=== PATIENT | male | born 1965 | race Caucasian/White ===

== ENCOUNTER → 2022-06-13 | Outpatient (CLI) | payer MEDICARE, MEDICAID ==
[~2022-06-13] MED LIST: AMMO12CR7 EX; ASPI81CH49 PO; ASPI81TA83 OR; BACT2CRE TOP; BENG1CRE TOP; BENZ-52 PO; BENZ1TAB OR; CLIN300C OR; COGE1INJ PO; COGENTIN PO; FISHCAP PO; FLON1SPR; GEOD60CA PO; GLIMEPIRIDE PO; GLIP5TAB2 OR; GLUC1000 OR; HALDOL DECANOATE IM; HALDOL DECONATE IM; HALDOL PO; HALO10TA4 OR; INSUDET SC; INVO300T PO; JANU100T PO; JANUVIA PO; LANTINJ4 SC; LASI40TA OR; LASI40TA9 PO; LATU1TAB PO; LIPI1TAB2 OR; LIPITOR PO; LISI5TAB11 PO; METF10004 PO; METFORMIN PO; METOPROLOL PO; NEXI1CAP3 OR; POTA-77 PO; POTA20TA OR; PRIN20TA3 OR; PROT1TAB2 OR; RISP2TAB12 OR; TOPI100T9 PO; TOPI50TA OR; TRAZ50TA OR; VITA100T OR; VITAMIN B 12 PO; VITAMIN B-12 PO; VITAMIN D50000 UNT OR; ZOCO80TA OR; [UNRECOGNIZED DRUG - CODE] PO
== END ==
LOC: M EKG 10:03
PROVIDERS: ATTEND Registered Nurse
DX: F20.9 Schizophrenia, unspecified (principal); Z51.81 Encounter for therapeutic drug level monitoring; Z13.9 Encounter for screening, unspecified; Z79.899 Other long term (current) drug therapy

== ENCOUNTER 2022-08-09 16:16 | Inpatient (IN) | payer MEDICARE, MEDICAID ==
[~2022-08-09] VITALS: Ht 167.6 cm; Wt 115.7 kg
[2022-08-09] MEDS ORDERED: VANCOMYCIN HCL 2,000 MG in D5W 500 ML IV ONE (16:40)
[2022-08-09] MEDS ORDERED: VANCOMYCIN HCL 1,000 MG, VIAL MATE ADAPTER 1 EACH in NS 250 ML IV ONE ×2 (17:00→18:00)
[2022-08-09] MEDS ORDERED: LIDOCAINE 2% 5ML JELLY UROJET TOP ONE (17:55)
[2022-08-09 17:56] LABS: INR 1.06
[2022-08-09 17:57] LABS: PARTIAL THROMBOPLASTIN TIME 28.7 SECONDS (24.8-34.2)
[2022-08-09 18:01] LABS: BASO % 0.3 % (0.0-1.0); EOS % 0.1 % (0.0-3.0); HEMATOCRIT 45.4 % (42.0-52.0); HEMOGLOBIN 15.2 g/dl (13.5-17.5); LIPASE 19 U/L (12-53); LYMPH # 1.1 10^3/uL (1.5-5.0); LYMPH % 7.6 % (24.0-44.0); MEAN CORPUSCULAR HGB CONC 33.5 g/dl (32.0-36.5); MEAN CORPUSCULAR VOLUME 89.5 fl (80.0-96.0); MONO # 1.1 10^3/uL (0.0-0.8); NEUTROPHILS # 11.7 10^3/uL (1.5-8.5); NEUTROPHILS % 83.4 % (36.0-66.0); PLATELET COUNT, AUTOMATED 316 10^3/uL (150-450); RED BLOOD COUNT 5.07 10^6/uL (4.30-6.10)
[2022-08-09 18:03] LABS: ALBUMIN 2.8 G/DL (3.2-5.2); ALKALINE PHOSPHATASE 145 U/L (46-116); ALT/SGPT 15 U/L (7.0-40); AST/SGOT 17 U/L (<34); BILIRUBIN,DIRECT 0.1 MG/DL (<0.4); BILIRUBIN,TOTAL 0.4 MG/DL (0.3-1.2)
[2022-08-09 18:20] LABS: BLOOD UREA NITROGEN 18 MG/DL (9-23); CALCIUM LEVEL 8.8 MG/DL (8.5-10.1); CARBON DIOXIDE LEVEL 17 MMOL/L (20-31); CHLORIDE LEVEL 105 MMOL/L (98-107); CREATININE FOR GFR 0.66 MG/DL (0.70-1.30); GLOMERULAR FILTRATION RATE > 60.0 (>56); GLUCOSE, FASTING 111 MG/DL (60-100); POTASSIUM SERUM 3.9 MMOL/L (3.5-5.1); SODIUM LEVEL 139 MMOL/L (136-145)
[2022-08-09 18:39] LABS: RSV AMPLIFICATION NEGATIVE (NEGATIVE)
[2022-08-09] MEDS ORDERED: cefTRIAXone 500MG VIAL IM ONE (20:10)
[2022-08-09] MEDS ORDERED: LIDOCAINE 1% SDV 5ML VIAL DILUENT ONE (20:10)
[2022-08-09] MEDS: INSULIN LISPRO (NovoLOG) PER UNIT SC SCH (21:00)
[2022-08-09] MEDS ORDERED: DOXYCYCLINE HYCLATE 100MG TABLET PO SCH (21:00)
[2022-08-09] MEDS ORDERED: ASPI-161 PO (21:02)
[2022-08-09] MEDS ORDERED: DOCU100C16 PO (21:02)
[2022-08-09] MEDS ORDERED: SUMA50TA2 PO (21:02)
[2022-08-09] MEDS ORDERED: BENZ0.5T23 PO ×2 (21:02)
[2022-08-09] MEDS ORDERED: ZETI10TA16 PO (21:02)
[2022-08-09] MEDS ORDERED: VENL75CA2 PO (21:02)
[2022-08-09] MEDS ORDERED: OMEG10002 PO (21:02)
[2022-08-09] MEDS ORDERED: METF10004 PO (21:02)
[2022-08-09] MEDS ORDERED: FURO40TA2 PO (21:02)
[2022-08-09] MEDS ORDERED: JARD1TAB3 PO (21:02)
[2022-08-09] MEDS ORDERED: POTA10TA67 PO (21:02)
[2022-08-09] MEDS ORDERED: ATOR40TA75 PO (21:02)
[2022-08-09] MEDS ORDERED: INSUHUMDS SC (21:02)
[2022-08-09] MEDS ORDERED: QUET50TA4 PO (21:02)
[2022-08-09] MEDS ORDERED: LOPE1CAP5 PO (21:02)
[2022-08-09] MEDS ORDERED: IBUP1TAB6 PO (21:02)
[2022-08-09] MEDS ORDERED: METO50TA7 PO (21:02)
[2022-08-09] MEDS ORDERED: VITMTA PO (21:02)
[2022-08-09] MEDS ORDERED: LANTINJ4 SC (21:02)
[2022-08-09] MEDS ORDERED: FLON1SPR (21:02)
[2022-08-09] MEDS ORDERED: BENA25TA5 PO (21:02)
[2022-08-09] MEDS ORDERED: HALD100I2 IM (21:02)
[2022-08-09] MEDS ORDERED: ACET-907 PO (21:02)
[2022-08-09] MEDS ORDERED: TOPI100T9 PO (21:02)
[2022-08-09] MEDS ORDERED: HOME MED LIST COMPLETE! XX SCH (21:05)
[2022-08-09] MEDS ORDERED: GLUCAGON INJ 1MG VIAL SC PRN (21:25)
[2022-08-09] MEDS ORDERED: ACETAMINOPHEN 325 MG TAB PO PRN (21:25)
[2022-08-09] MEDS ORDERED: SUMAtriptan SUCCINATE 25 MG TAB PO PRN (21:25)
[2022-08-09] MEDS ORDERED: GLUCOSE 4GM CHEW TABLET PO PRN (21:25)
[2022-08-09] MEDS ORDERED: DEXTROSE 50% 50ML SYRINGE IV PRN (21:25)
[2022-08-09] MEDS: ATORVASTATIN 20 MG TAB PO SCH (22:29)
[2022-08-09] MEDS: METOPROLOL TART 50 MG TAB PO SCH (22:29)
[2022-08-09] MEDS: BENZTROPINE 0.5 MG TAB PO SCH (22:30)
[2022-08-09] MEDS: TOPIRAMATE (TopAMAX) 100 MG TAB PO SCH (22:30)
[2022-08-09 23:20] VITALS: BP 116/76
[2022-08-10 02:00] VITALS: BP 110/72
[2022-08-10 05:15] VITALS: BP 110/68
[2022-08-10 06:29] LABS: BASO # 0.1 10^3/uL (0.0-0.2); BASO % 0.4 % (0.0-1.0); EOS # 0.1 10^3/uL (0.0-0.5); EOS % 0.5 % (0.0-3.0); HEMATOCRIT 44.7 % (42.0-52.0); HEMOGLOBIN 14.7 g/dl (13.5-17.5); LYMPH # 1.4 10^3/uL (1.5-5.0); LYMPH % 10.5 % (24.0-44.0); MEAN CORPUSCULAR HEMOGLOBIN 29.9 pg (27.0-33.0); MEAN CORPUSCULAR HGB CONC 32.9 g/dl (32.0-36.5); MONO # 1.2 10^3/uL (0.0-0.8); MONO % 9.4 % (2.0-8.0); NEUTROPHILS # 10.1 10^3/uL (1.5-8.5); NEUTROPHILS % 78.4 % (36.0-66.0); PLATELET COUNT, AUTOMATED 309 10^3/uL (150-450); RED BLOOD COUNT 4.91 10^6/uL (4.30-6.10); WHITE BLOOD COUNT 12.9 10^3/uL (4.0-10.0)
[2022-08-10 06:38] LABS: BLOOD UREA NITROGEN 19 MG/DL (9-23); CALCIUM LEVEL 8.6 MG/DL (8.5-10.1); CARBON DIOXIDE LEVEL 18 MMOL/L (20-31); CHLORIDE LEVEL 106 MMOL/L (98-107); CREATININE FOR GFR 0.67 MG/DL (0.70-1.30); GLOMERULAR FILTRATION RATE > 60.0 (>56); GLUCOSE, FASTING 75 MG/DL (60-100); POTASSIUM SERUM 3.8 MMOL/L (3.5-5.1); SODIUM LEVEL 140 MMOL/L (136-145)
[2022-08-10] MEDS: INSULIN LISPRO (NovoLOG) PER UNIT SC SCH ×4 (07:27→21:00)
[2022-08-10] MEDS: FUROSEMIDE 40 MG TAB PO SCH (09:00)
[2022-08-10] MEDS: FLUBLOK(EGG FREE)(QUAD)INFLUENZA VACC 0.5ML SYRINGE 18YRS & OLDER IM.IMMUN ONE ×2 (09:00→10:03)
[2022-08-10] MEDS ORDERED: VENLAFAXINE **XR** 75MG CAPSULE PO SCH (09:00)
[2022-08-10 09:01] LABS: GC DNA AMPLIFICATION NEGATIVE (NEGATIVE)
[2022-08-10] MEDS: DOCUSATE SODIUM 100MG CAPSULE PO SCH (09:50)
[2022-08-10 10:00] VITALS: BP 110/69
[2022-08-10] MEDS: OMEGA-3 1000MG CAPSULE PO SCH (10:01)
[2022-08-10] MEDS: ENOXAPARIN 40MG/0.4ML SYRINGE (J1650 PER 10MG) SC SCH (10:01)
[2022-08-10] MEDS: BENZTROPINE 0.5 MG TAB PO SCH ×2 (10:02→21:43)
[2022-08-10] MEDS: ASPIRIN 81MG ENTERIC TABLET PO SCH (10:02)
[2022-08-10] MEDS: TOPIRAMATE (TopAMAX) 100 MG TAB PO SCH ×2 (10:02→21:44)
[2022-08-10] MEDS: FLUTICASONE PROP 0.05% NASAL SPRAY 16 GM (FLONASE) SCH (10:02)
[2022-08-10] MEDS: MULTIVITAMINS/MINERALS THERAP 1 TAB PO SCH (10:03)
[2022-08-10 10:25] LABS: HEMOGLOBIN A1c 12.3 % (4.0-6.0)
[2022-08-10] MEDS: METOPROLOL TART 50 MG TAB PO SCH ×2 (10:35→21:40)
[2022-08-10 14:00] VITALS: BP 125/74
[2022-08-10 18:00] VITALS: BP 123/72
[2022-08-10 20:00] VITALS: BP 122/72
[2022-08-10] MEDS ORDERED: cefTRIAXone SOD 1 GM in D5W MINI-BAG PLUS 50 ML IV SCH (20:00)
[2022-08-10] MEDS: QUEtiapine FUMARATE 50MG TAB PO SCH (21:43)
[2022-08-10] MEDS: ATORVASTATIN 20 MG TAB PO SCH (21:43)
[2022-08-10] MEDS: IBUPROFEN 600MG TAB PO PRN (21:45)
[2022-08-11 02:00] VITALS: BP 121/73
[2022-08-11] MEDS: VANCOMYCIN HCL 1,000 MG, VIAL MATE ADAPTER 1 EACH in NS 250 ML IV SCH ×3 (02:46→17:49)
[2022-08-11 05:28] VITALS: BP 120/74
[2022-08-11 06:24] LABS: HEMATOCRIT 44.6 % (42.0-52.0); HEMOGLOBIN 14.7 g/dl (13.5-17.5); MEAN CORPUSCULAR HEMOGLOBIN 29.8 pg (27.0-33.0); MEAN CORPUSCULAR VOLUME 90.5 fl (80.0-96.0); PLATELET COUNT, AUTOMATED 315 10^3/uL (150-450); RED BLOOD COUNT 4.93 10^6/uL (4.30-6.10); WHITE BLOOD COUNT 10.3 10^3/uL (4.0-10.0)
[2022-08-11 06:44] LABS: MAGNESIUM LEVEL 2.1 MG/DL (1.8-2.4)
[2022-08-11 06:46] LABS: BLOOD UREA NITROGEN 17 MG/DL (9-23); CALCIUM LEVEL 8.5 MG/DL (8.5-10.1); CARBON DIOXIDE LEVEL 21 MMOL/L (20-31); CHLORIDE LEVEL 107 MMOL/L (98-107); CREATININE FOR GFR 0.72 MG/DL (0.70-1.30); GLOMERULAR FILTRATION RATE > 60.0 (>56); GLUCOSE, FASTING 169 MG/DL (60-100); PHOSPHORUS LEVEL 3.5 MG/DL (2.5-4.9); POTASSIUM SERUM 3.9 MMOL/L (3.5-5.1); SODIUM LEVEL 140 MMOL/L (136-145)
[2022-08-11] MEDS: INSULIN LISPRO (NovoLOG) PER UNIT SC SCH ×4 (08:12→20:43)
[2022-08-11] MEDS: BENZTROPINE 0.5 MG TAB PO SCH ×2 (08:14→20:11)
[2022-08-11] MEDS: ASPIRIN 81MG ENTERIC TABLET PO SCH (08:14)
[2022-08-11] MEDS: TOPIRAMATE (TopAMAX) 100 MG TAB PO SCH ×2 (08:14→20:11)
[2022-08-11] MEDS: ENOXAPARIN 40MG/0.4ML SYRINGE (J1650 PER 10MG) SC SCH (08:14)
[2022-08-11] MEDS: FUROSEMIDE 40 MG TAB PO SCH (08:14)
[2022-08-11] MEDS: DOCUSATE SODIUM 100MG CAPSULE PO SCH (08:15)
[2022-08-11] MEDS: METOPROLOL TART 50 MG TAB PO SCH ×2 (08:15→20:12)
[2022-08-11] MEDS: OMEGA-3 1000MG CAPSULE PO SCH (08:15)
[2022-08-11] MEDS: FLUTICASONE PROP 0.05% NASAL SPRAY 16 GM (FLONASE) SCH (08:15)
[2022-08-11] MEDS: MULTIVITAMINS/MINERALS THERAP 1 TAB PO SCH (08:15)
[2022-08-11] MEDS ORDERED: NS 1,000 ML IV SCH (11:55)
[2022-08-11] MEDS: PIPERACILLIN/TAZOBACTAM SOD 4.5 GM in D5W MINI-BAG PLUS 50 ML IV SCH ×2 (12:21→18:55)
[2022-08-11] MEDS ORDERED: VANCOMYCIN HCL 1,000 MG, VIAL MATE ADAPTER 1 EACH in NS 250 ML IV SCH (12:35)
[2022-08-11] MEDS ORDERED: ISOVUE-370 76% 100ML VIAL As Ordered ONE (13:06)
[2022-08-11 14:00] VITALS: BP 135/84
[2022-08-11] MEDS ORDERED: VANCOMYCIN HCL 500 MG in D5W MINI-BAG PLUS 100 ML IV ONE (19:00)
[2022-08-11] MEDS: IBUPROFEN 600MG TAB PO PRN (20:11)
[2022-08-11] MEDS: ATORVASTATIN 20 MG TAB PO SCH (20:11)
[2022-08-11] MEDS: QUEtiapine FUMARATE 50MG TAB PO SCH (20:11)
[2022-08-11 20:23] VITALS: BP 123/77
[2022-08-12] MEDS: PIPERACILLIN/TAZOBACTAM SOD 4.5 GM in D5W MINI-BAG PLUS 50 ML IV SCH ×4 (00:56→18:04)
[2022-08-12] MEDS: VANCOMYCIN HCL 1,000 MG, VIAL MATE ADAPTER 1 EACH in NS 250 ML IV SCH ×3 (02:00→18:55)
[2022-08-12 05:06] VITALS: BP 118/76
[2022-08-12 06:51] LABS: MAGNESIUM LEVEL 1.9 MG/DL (1.8-2.4)
[2022-08-12 06:55] LABS: ALBUMIN 2.5 G/DL (3.2-5.2); ALKALINE PHOSPHATASE 135 U/L (46-116); ALT/SGPT 16 U/L (7.0-40); AST/SGOT 15 U/L (<34); BILIRUBIN,TOTAL 0.3 MG/DL (0.3-1.2); BLOOD UREA NITROGEN 17 MG/DL (9-23); CALCIUM LEVEL 8.6 MG/DL (8.5-10.1); CARBON DIOXIDE LEVEL 19 MMOL/L (20-31); CHLORIDE LEVEL 108 MMOL/L (98-107); CREATININE FOR GFR 0.78 MG/DL (0.70-1.30); GLOMERULAR FILTRATION RATE > 60.0 (>56); GLUCOSE, FASTING 198 MG/DL (60-100); PHOSPHORUS LEVEL 3.7 MG/DL (2.5-4.9); POTASSIUM SERUM 3.7 MMOL/L (3.5-5.1); SODIUM LEVEL 141 MMOL/L (136-145); TOTAL PROTEIN 6.1 G/DL (5.7-8.2)
[2022-08-12] MEDS: ENOXAPARIN 40MG/0.4ML SYRINGE (J1650 PER 10MG) SC SCH (08:20)
[2022-08-12] MEDS: INSULIN LISPRO (NovoLOG) PER UNIT SC SCH ×4 (08:20→20:54)
[2022-08-12] MEDS: TOPIRAMATE (TopAMAX) 100 MG TAB PO SCH ×2 (08:22→20:53)
[2022-08-12] MEDS: FLUTICASONE PROP 0.05% NASAL SPRAY 16 GM (FLONASE) SCH (08:22)
[2022-08-12] MEDS: ASPIRIN 81MG ENTERIC TABLET PO SCH (08:25)
[2022-08-12] MEDS: MULTIVITAMINS/MINERALS THERAP 1 TAB PO SCH (08:25)
[2022-08-12] MEDS: OMEGA-3 1000MG CAPSULE PO SCH (08:25)
[2022-08-12] MEDS: DOCUSATE SODIUM 100MG CAPSULE PO SCH (08:25)
[2022-08-12] MEDS: FUROSEMIDE 40 MG TAB PO SCH (08:26)
[2022-08-12] MEDS: BENZTROPINE 0.5 MG TAB PO SCH ×2 (08:26→20:54)
[2022-08-12] MEDS: METOPROLOL TART 50 MG TAB PO SCH ×2 (08:28→20:55)
[2022-08-12 14:00] VITALS: BP 110/60
[2022-08-12] MEDS: LEVEMIR (INSULIN DETEMIR) 1 UNITS/0.01ML SC SCH (18:04)
[2022-08-12] MEDS: QUEtiapine FUMARATE 50MG TAB PO SCH (20:54)
[2022-08-12] MEDS: ATORVASTATIN 20 MG TAB PO SCH (20:54)
[2022-08-12 21:35] VITALS: BP 125/73
[2022-08-13] MEDS: PIPERACILLIN/TAZOBACTAM SOD 4.5 GM in D5W MINI-BAG PLUS 50 ML IV SCH ×4 (00:30→17:30)
[2022-08-13] MEDS: VANCOMYCIN HCL 1,000 MG, VIAL MATE ADAPTER 1 EACH in NS 250 ML IV SCH (01:51)
[2022-08-13 06:00] VITALS: BP 133/73
[2022-08-13] MEDS ORDERED: VANCOMYCIN HCL 1,000 MG, VIAL MATE ADAPTER 1 EACH in NS 250 ML IV SCH (06:00)
[2022-08-13 06:22] LABS: BASO # 0.1 10^3/uL (0.0-0.2); BASO % 0.8 % (0.0-1.0); EOS # 0.2 10^3/uL (0.0-0.5); EOS % 1.8 % (0.0-3.0); HEMATOCRIT 43.6 % (42.0-52.0); HEMOGLOBIN 14.7 g/dl (13.5-17.5); LYMPH # 1.7 10^3/uL (1.5-5.0); LYMPH % 19.7 % (24.0-44.0); MEAN CORPUSCULAR HEMOGLOBIN 29.9 pg (27.0-33.0); MEAN CORPUSCULAR HGB CONC 33.7 g/dl (32.0-36.5); MEAN CORPUSCULAR VOLUME 88.6 fl (80.0-96.0); MONO # 0.9 10^3/uL (0.0-0.8); NEUTROPHILS # 5.7 10^3/uL (1.5-8.5); NEUTROPHILS % 66.5 % (36.0-66.0); PLATELET COUNT, AUTOMATED 322 10^3/uL (150-450); RED BLOOD COUNT 4.92 10^6/uL (4.30-6.10); WHITE BLOOD COUNT 8.6 10^3/uL (4.0-10.0)
[2022-08-13 06:53] LABS: MAGNESIUM LEVEL 1.8 MG/DL (1.8-2.4)
[2022-08-13 06:55] LABS: ALBUMIN 2.5 G/DL (3.2-5.2); ALKALINE PHOSPHATASE 129 U/L (46-116); ALT/SGPT 20 U/L (7.0-40); AST/SGOT 18 U/L (<34); BILIRUBIN,TOTAL 0.3 MG/DL (0.3-1.2); BLOOD UREA NITROGEN 11 MG/DL (9-23); CALCIUM LEVEL 8.3 MG/DL (8.5-10.1); CARBON DIOXIDE LEVEL 22 MMOL/L (20-31); CHLORIDE LEVEL 106 MMOL/L (98-107); CREATININE FOR GFR 0.72 MG/DL (0.70-1.30); GLOMERULAR FILTRATION RATE > 60.0 (>56); GLUCOSE, FASTING 253 MG/DL (60-100); PHOSPHORUS LEVEL 3.6 MG/DL (2.5-4.9); POTASSIUM SERUM 3.7 MMOL/L (3.5-5.1); SODIUM LEVEL 138 MMOL/L (136-145); TOTAL PROTEIN 6.2 G/DL (5.7-8.2)
[2022-08-13] MEDS: MULTIVITAMINS/MINERALS THERAP 1 TAB PO SCH (08:49)
[2022-08-13] MEDS: DOCUSATE SODIUM 100MG CAPSULE PO SCH (08:49)
[2022-08-13] MEDS: ASPIRIN 81MG ENTERIC TABLET PO SCH (08:49)
[2022-08-13] MEDS: BENZTROPINE 0.5 MG TAB PO SCH ×2 (08:49→21:00)
[2022-08-13] MEDS: TOPIRAMATE (TopAMAX) 100 MG TAB PO SCH ×2 (08:49→21:00)
[2022-08-13] MEDS: ENOXAPARIN 40MG/0.4ML SYRINGE (J1650 PER 10MG) SC SCH (08:50)
[2022-08-13] MEDS: METOPROLOL TART 50 MG TAB PO SCH ×2 (08:50→21:00)
[2022-08-13] MEDS: FUROSEMIDE 40 MG TAB PO SCH (08:50)
[2022-08-13] MEDS: INSULIN LISPRO (NovoLOG) PER UNIT SC SCH ×4 (08:51→21:00)
[2022-08-13] MEDS: LEVEMIR (INSULIN DETEMIR) 1 UNITS/0.01ML SC SCH ×2 (08:51→21:33)
[2022-08-13] MEDS: FLUTICASONE PROP 0.05% NASAL SPRAY 16 GM (FLONASE) SCH (08:51)
[2022-08-13 14:00] VITALS: BP 131/73
[2022-08-13] MEDS: metFORMIN (GLUCOPHAGE) 500MG TAB PO SCH (17:29)
[2022-08-13] MEDS ORDERED: INSULIN LISPRO (NovoLOG) PER UNIT SC SCH (17:30)
[2022-08-13] MEDS: ATORVASTATIN 20 MG TAB PO SCH (21:00)
[2022-08-13] MEDS: QUEtiapine FUMARATE 50MG TAB PO SCH (21:00)
[2022-08-13 22:00] VITALS: BP 128/71
[2022-08-14] MEDS: PIPERACILLIN/TAZOBACTAM SOD 4.5 GM in D5W MINI-BAG PLUS 50 ML IV SCH ×3 (01:17→12:00)
[2022-08-14 06:00] VITALS: BP 133/74
[2022-08-14 08:12] LABS: HEMATOCRIT 43.9 % (42.0-52.0); HEMOGLOBIN 14.7 g/dl (13.5-17.5); MEAN CORPUSCULAR HEMOGLOBIN 29.8 pg (27.0-33.0); MEAN CORPUSCULAR HGB CONC 33.5 g/dl (32.0-36.5); MEAN CORPUSCULAR VOLUME 88.9 fl (80.0-96.0); PLATELET COUNT, AUTOMATED 313 10^3/uL (150-450); RED BLOOD COUNT 4.94 10^6/uL (4.30-6.10); WHITE BLOOD COUNT 8.9 10^3/uL (4.0-10.0)
[2022-08-14 08:39] LABS: MAGNESIUM LEVEL 1.7 MG/DL (1.8-2.4)
[2022-08-14] MEDS: INSULIN LISPRO (NovoLOG) PER UNIT SC SCH ×2 (08:43→12:54)
[2022-08-14] MEDS: MULTIVITAMINS/MINERALS THERAP 1 TAB PO SCH (08:43)
[2022-08-14] MEDS: TOPIRAMATE (TopAMAX) 100 MG TAB PO SCH (08:43)
[2022-08-14] MEDS: ASPIRIN 81MG ENTERIC TABLET PO SCH (08:43)
[2022-08-14] MEDS: ENOXAPARIN 40MG/0.4ML SYRINGE (J1650 PER 10MG) SC SCH (08:44)
[2022-08-14] MEDS: LEVEMIR (INSULIN DETEMIR) 1 UNITS/0.01ML SC SCH (08:44)
[2022-08-14] MEDS: FLUTICASONE PROP 0.05% NASAL SPRAY 16 GM (FLONASE) SCH (08:44)
[2022-08-14] MEDS: metFORMIN (GLUCOPHAGE) 500MG TAB PO SCH (08:45)
[2022-08-14] MEDS: FUROSEMIDE 40 MG TAB PO SCH (08:45)
[2022-08-14] MEDS: DOCUSATE SODIUM 100MG CAPSULE PO SCH (08:45)
[2022-08-14] MEDS: BENZTROPINE 0.5 MG TAB PO SCH (08:45)
[2022-08-14 08:48] VITALS: BP 111/64
[2022-08-14 08:48] LABS: BLOOD UREA NITROGEN 6 MG/DL (9-23); CALCIUM LEVEL 8.9 MG/DL (8.5-10.1); CARBON DIOXIDE LEVEL 23 MMOL/L (20-31); CHLORIDE LEVEL 105 MMOL/L (98-107); CREATININE FOR GFR 0.75 MG/DL (0.70-1.30); GLOMERULAR FILTRATION RATE > 60.0 (>56); GLUCOSE, FASTING 237 MG/DL (60-100); POTASSIUM SERUM 3.7 MMOL/L (3.5-5.1); SODIUM LEVEL 138 MMOL/L (136-145)
[2022-08-14] MEDS: METOPROLOL TART 50 MG TAB PO SCH (08:48)
[2022-08-14] MEDS ORDERED: MAG SULF 1GM/100ML (MAG RUN) 1 GM in IV 1 EA IV ONE (08:50)
[2022-08-14] MEDS: IBUPROFEN 600MG TAB PO PRN (08:50)
[2022-08-14] MEDS ORDERED: LEVEMIR (INSULIN DETEMIR) 1 UNITS/0.01ML SC SCH (09:00)
[2022-08-14] MEDS ORDERED: INSUDET SC ×3 (09:08→12:11)
[2022-08-14] MEDS ORDERED: INSUHUMDS SC ×4 (09:08→12:11)
[2022-08-14] MEDS ORDERED: LEVO1TAB40 PO (09:08)
[2022-08-14] MEDS ORDERED: METR-265 PO (09:08)
[2022-08-14] MEDS ORDERED: LEVE1INJ5 SC (13:13)
[2022-08-14] MEDS ORDERED: HUMA50IN4 SC (13:13)
[2022-08-14] MEDS ORDERED: METF-877 PO (16:49)
== END 2022-08-14 13:22 | disposition home or self-care (01) | DRG 728 ==
LOC: EDBD 16:16 → M ED 16:16 → M ED INP 21:53 → M MSPAV 23:20
PROVIDERS: ADMIT Family Medicine; ATTEND Internal Medicine
DX: N49.2 Inflammatory disorders of scrotum (principal); F20.9 Schizophrenia, unspecified; E11.65 Type 2 diabetes mellitus with hyperglycemia; I10 Essential (primary) hypertension; G43.909 Migraine, unspecified, not intractable, without status migrainosus; E78.00 Pure hypercholesterolemia, unspecified; E78.5 Hyperlipidemia, unspecified; Z79.4 Long term (current) use of insulin; K59.00 Constipation, unspecified; Z79.82 Long term (current) use of aspirin; Z79.899 Other long term (current) drug therapy; Z88.8 Allergy status to other drugs, medicaments and biological substances; E66.9 Obesity, unspecified; N48.22 Cellulitis of corpus cavernosum and penis

== ENCOUNTER 2023-02-22 23:14 | Emergency (ER) | payer MEDICARE, MEDICAID ==
[~2023-02-22] VITALS: Ht 167.6 cm; Wt 118.2 kg
[~2023-02-22 23:14] MED LIST changes: +ACET-907 PO; +ASPI-161 PO; +ATOR40TA75 PO; +BENA25TA5 PO; -BENZ-52 PO; +BENZ0.5T2 PO; +BENZ1TAB5 PO; +DOCU100C16 PO; +FURO40TA2 PO; +HALD100I2 IM; +HUMA50IN4 SC; +IBUP1TAB6 PO; +INSU100I6 SC; +INSUHUMDS SC; +JARD1TAB3 PO; +LEVO1TAB40 PO; +LOPE1CAP5 PO; +METF-877 PO; +METO50TA7 PO; +METR-265 PO; +OMEG10002 PO; +POTA10TA67 PO; +QUET50TA4 PO; +SUMA50TA2 PO; +VENL75CA2 PO; +VITMTA PO; +ZETI10TA16 PO
[2023-02-23] MEDS ORDERED: METO1TAB33 PO (01:22)
[2023-02-23] MEDS ORDERED: INSUHUMDS SC (01:22)
[2023-02-23] MEDS ORDERED: INSU100I48 SQ (01:22)
[2023-02-23] MEDS ORDERED: BENZ2TAB48 PO (01:22)
[2023-02-23] MEDS ORDERED: HOME MED LIST COMPLETE! XX SCH (01:25)
[2023-02-23 01:32] LABS: HEMATOCRIT 42.6 % (42.0-52.0); HEMOGLOBIN 14.6 g/dl (13.5-17.5); MEAN CORPUSCULAR HEMOGLOBIN 29.5 pg (27.0-33.0); MEAN CORPUSCULAR HGB CONC 34.3 g/dl (32.0-36.5); MEAN CORPUSCULAR VOLUME 86.1 fl (80.0-96.0); PLATELET COUNT, AUTOMATED 230 10^3/uL (150-450); RED BLOOD COUNT 4.95 10^6/uL (4.30-6.10); WHITE BLOOD COUNT 6.6 10^3/uL (4.0-10.0)
[2023-02-23 01:47] LABS: AMPHETAMINES LEVEL URINE NEGATIVE (NEGATIVE); BARBITURATES URINE NEGATIVE (NEGATIVE); BENZODIAZEPINES URINE NEGATIVE (NEGATIVE); COCAINE METABOLITE URINE NEGATIVE (NEGATIVE); METHADONE URINE NEGATIVE (NEGATIVE); OPIATES URINE NEGATIVE (NEGATIVE)
[2023-02-23 01:48] LABS: CANNABINOIDS URINE NEGATIVE (NEGATIVE); PHENCYCLIDINE URINE NEGATIVE (NEGATIVE)
[2023-02-23 01:50] LABS: ETHYL ALCOHOL (ETHANOL) < 0.003 % (0.000-0.010)
[2023-02-23 01:51] LABS: ACETAMINOPHEN LEVEL < 2.0 UG/ML (10.0-20.0); ALBUMIN 3.2 G/DL (3.2-5.2); ALKALINE PHOSPHATASE 108 U/L (46-116); ALT/SGPT 19 U/L (7.0-40); AST/SGOT < 8 U/L (<34); BILIRUBIN,DIRECT 0.1 MG/DL (<0.4); BILIRUBIN,TOTAL 0.4 MG/DL (0.3-1.2); BLOOD UREA NITROGEN 10 MG/DL (9-23); CALCIUM LEVEL 9.2 MG/DL (8.5-10.1); CARBON DIOXIDE LEVEL 24 MMOL/L (20-31); CHLORIDE LEVEL 104 MMOL/L (98-107); CREATININE FOR GFR 0.58 MG/DL (0.70-1.30); GLOMERULAR FILTRATION RATE > 60.0 (>56); GLUCOSE, FASTING 310 MG/DL (60-100); POTASSIUM SERUM 3.5 MMOL/L (3.5-5.1); SALICYLATE LEVEL < 3.0 MG/DL (<30); SODIUM LEVEL 137 MMOL/L (136-145); TOTAL PROTEIN 6.1 G/DL (5.7-8.2)
[2023-02-23 01:53] LABS: THYROID STIMULATING HORMONE 1.372 uIU/ML (0.55-4.78)
[2023-02-23 04:05] VITALS: BP 142/72; TEMP 98.2; O2SAT 98
== END 2023-02-23 04:40 | disposition home or self-care (01) ==
LOC: M ED 23:14
DX: F32.A Depression, unspecified (principal); F20.9 Schizophrenia, unspecified; E11.9 Type 2 diabetes mellitus without complications; G43.909 Migraine, unspecified, not intractable, without status migrainosus; E78.5 Hyperlipidemia, unspecified; Z79.84 Long term (current) use of oral hypoglycemic drugs; Z88.8 Allergy status to other drugs, medicaments and biological substances; Z79.82 Long term (current) use of aspirin; Z79.899 Other long term (current) drug therapy

== ENCOUNTER → 2024-07-16 | Outpatient (REF) | payer MEDICARE, MEDICAID ==
[~2024-07-16] MED LIST changes: -ASPI-161 PO; +ASPI-615 PO; +BENZ2TAB48 PO; +EZET10TA58 PO; +INSU100I48 SQ; +METO1TAB33 PO; -ZETI10TA16 PO
[2024-07-16 13:18] LABS: CREATININE, URINE 11.6 MG/DL; MAU/CREAT RATIO 43.1 MCG/MG (0.0-30.0)
[2024-07-16 14:47] LABS: ALBUMIN 3.2 G/DL (3.2-5.2); ALKALINE PHOSPHATASE 103 U/L (40-129); ALT/SGPT 22 U/L (7.0-40); AST/SGOT < 8 U/L (<34); BILIRUBIN,TOTAL 0.3 MG/DL (0.3-1.2); BLOOD UREA NITROGEN 9 MG/DL (9-23); CARBON DIOXIDE LEVEL 27 MMOL/L (20-31); CHLORIDE LEVEL 99 MMOL/L (98-107); CHOLESTEROL LEVEL 102 MG/DL (<200); CHOLESTEROL RISK RATIO 3.34 (<5); CREATININE FOR GFR 0.71 MG/DL (0.70-1.30); GLOMERULAR FILTRATION RATE > 60.0 (>56); GLUCOSE, FASTING 376 MG/DL (60-100); HDL CHOLESTEROL 30.5 MG/DL (>40); LDL CHOLESTEROL 36.1 MG/DL (<100); NON-HDL-C 71.5 MG/DL; POTASSIUM SERUM 3.7 MMOL/L (3.5-5.1); SODIUM LEVEL 132 MMOL/L (136-145); TOTAL PROTEIN 6.6 G/DL (5.7-8.2); TRIGLYCERIDES LEVEL 177 MG/DL (<150)
[2024-07-16 14:50] LABS: HEMOGLOBIN A1c 12.8 % (4.0-6.0)
== END ==
LOC: M LAB REF 12:18
PROVIDERS: ATTEND Family Medicine Addiction Medicine
DX: E11.9 Type 2 diabetes mellitus without complications (principal)

== ENCOUNTER → 2024-10-26 | Outpatient (REF) | payer MEDICARE, MEDICAID ==
[2024-10-26 13:10] LABS: CREATININE, URINE 38.7 MG/DL
[2024-10-26 13:12] LABS: MAU/CREAT RATIO 103.3 MCG/MG (0.0-30.0)
[2024-10-26 18:26] LABS: ALBUMIN 3.5 G/DL (3.2-5.2); ALKALINE PHOSPHATASE 102 U/L (40-129); ALT/SGPT 20 U/L (7.0-40); AST/SGOT 10 U/L (<34); BILIRUBIN,TOTAL 0.6 MG/DL (0.3-1.2); BLOOD UREA NITROGEN 8 MG/DL (9-23); CALCIUM LEVEL 9.1 MG/DL (8.5-10.1); CARBON DIOXIDE LEVEL 27 MMOL/L (20-31); CHLORIDE LEVEL 99 MMOL/L (98-107); CHOLESTEROL LEVEL 137 MG/DL (<200); CHOLESTEROL RISK RATIO 3.52 (<5); GLOMERULAR FILTRATION RATE > 60.0 (>56); GLUCOSE, FASTING 348 MG/DL (60-100); HDL CHOLESTEROL 38.9 MG/DL (>40); LDL CHOLESTEROL 68.9 MG/DL (<100); NON-HDL-C 98.1 MG/DL; POTASSIUM SERUM 4.5 MMOL/L (3.5-5.1); SODIUM LEVEL 135 MMOL/L (136-145); TOTAL PROTEIN 6.8 G/DL (5.7-8.2); TRIGLYCERIDES LEVEL 146 MG/DL (<150)
[2024-10-26 18:50] LABS: HEMOGLOBIN A1c 13.5 % (4.0-6.0)
== END ==
LOC: M LAB REF 12:00
PROVIDERS: ATTEND Family Medicine Addiction Medicine
DX: E11.9 Type 2 diabetes mellitus without complications (principal)

== ENCOUNTER 2024-11-09 01:58 | Emergency (ER) | payer MEDICARE, MEDICAID ==
[~2024-11-09] VITALS: Ht 167.6 cm; Wt 85.5 kg
[2024-11-09] MEDS: NS (Normal Saline) 0.9% 1,000 ML IV ONE (02:33)
[2024-11-09 02:39] LABS: VENOUS BASE EXCESS -3.9 (-2.0-2.0); VENOUS HCO3 21.1 MMOL/L (23.0-27.0); VENOUS O2 SATURATION 83.2 % (60.0-80.0); VENOUS PARTIAL PRESSURE CO2 38.4 mmHg (38.0-50.0); VENOUS PARTIAL PRESSURE O2 49.1 mmHg (30.0-50.0); VENOUS PH 7.357 UNITS (7.330-7.430); VENOUS STANDARD HCO3 20.9 MMOL/L; VENOUS TOTAL CO2 22.2 MMOL/L (24.0-28.0)
[2024-11-09 03:02] LABS: BASO % 0.6 % (0.0-1.0); EOS # 0.1 10^3/uL (0.0-0.5); EOS % 1.3 % (0.0-3.0); HEMATOCRIT 39.5 % (42.0-52.0); HEMOGLOBIN 14.4 g/dl (13.5-17.5); LYMPH # 2.3 10^3/uL (1.5-5.0); LYMPH % 33.7 % (24.0-44.0); MEAN CORPUSCULAR HEMOGLOBIN 31.3 pg (27.0-33.0); MEAN CORPUSCULAR HGB CONC 36.5 g/dl (32.0-36.5); MEAN CORPUSCULAR VOLUME 85.9 fl (80.0-96.0); MONO # 0.7 10^3/uL (0.0-0.8); MONO % 10.8 % (2.0-8.0); NEUTROPHILS # 3.5 10^3/uL (1.5-8.5); PLATELET COUNT, AUTOMATED 249 10^3/uL (150-450); WHITE BLOOD COUNT 6.7 10^3/uL (4.0-10.0)
[2024-11-09 03:07] LABS: CPK CREATINE PHOSPHOKINASE 88 U/L (46-171)
[2024-11-09 03:08] LABS: ACETONE/KETONE 0.17 MMOL/L (0.02-0.27)
[2024-11-09 03:10] LABS: BLOOD UREA NITROGEN 11 MG/DL (9-23); CALCIUM LEVEL 8.2 MG/DL (8.5-10.1); CARBON DIOXIDE LEVEL 22 MMOL/L (20-31); CHLORIDE LEVEL 97 MMOL/L (98-107); CREATININE FOR GFR 0.59 MG/DL (0.70-1.30); GLOMERULAR FILTRATION RATE > 60.0 (>56); GLUCOSE, FASTING 450 MG/DL (60-100); OSMOLALITY SERUM 292 MOSM/KG (275-295); POTASSIUM SERUM 3.8 MMOL/L (3.5-5.1); SODIUM LEVEL 129 MMOL/L (136-145)
[2024-11-09 03:27] LABS: HEMOGLOBIN A1c 13.1 % (4.0-6.0)
[2024-11-09] MEDS: HumuLIN R (REGULAR) INSULIN (NovoLIN R) **100U/ML** PER UNIT IV STA (03:45)
[2024-11-09] MEDS ORDERED: NEUR100C PO (03:54)
[2024-11-09 04:55] VITALS: BP 157/86; TEMP 97.6; O2SAT 98
== END 2024-11-09 04:55 | disposition home or self-care (01) ==
LOC: EDBD 01:58 → M ED 01:58
DX: E11.65 Type 2 diabetes mellitus with hyperglycemia (principal); G60.9 Hereditary and idiopathic neuropathy, unspecified; Z91.118 Patient's noncompliance with dietary regimen for other reason; W19.XXXA Unspecified fall, initial encounter; F20.9 Schizophrenia, unspecified; I10 Essential (primary) hypertension; E78.5 Hyperlipidemia, unspecified; E11.9 Type 2 diabetes mellitus without complications; F17.200 Nicotine dependence, unspecified, uncomplicated; Z88.8 Allergy status to other drugs, medicaments and biological substances; Z91.018 Allergy to other foods; Z79.82 Long term (current) use of aspirin; Z79.02 Long term (current) use of antithrombotics/antiplatelets; Z79.4 Long term (current) use of insulin; Z79.899 Other long term (current) drug therapy
CPT/HCPCS: 73564; 80048; 82010; 82550; 82803; 83036; 83930; 85025; 96361; 96374; 99284; J1815

== ENCOUNTER 2024-11-19 13:16 | Emergency (ER) | payer MEDICARE, MEDICAID ==
[~2024-11-19] VITALS: Ht 167.6 cm; Wt 89.0 kg
[~2024-11-19 13:16] MED LIST changes: +NEUR100C PO
[2024-11-19 14:38] LABS: HEMATOCRIT 40.2 % (42.0-52.0); HEMOGLOBIN 14.5 g/dl (13.5-17.5); MEAN CORPUSCULAR HEMOGLOBIN 31.3 pg (27.0-33.0); MEAN CORPUSCULAR HGB CONC 36.1 g/dl (32.0-36.5); MEAN CORPUSCULAR VOLUME 86.8 fl (80.0-96.0); PLATELET COUNT, AUTOMATED 326 10^3/uL (150-450); RED BLOOD COUNT 4.63 10^6/uL (4.30-6.10); WHITE BLOOD COUNT 6.4 10^3/uL (4.0-10.0)
[2024-11-19 14:53] LABS: BLOOD UREA NITROGEN 11 MG/DL (9-23); CALCIUM LEVEL 8.2 MG/DL (8.5-10.1); CARBON DIOXIDE LEVEL 24 MMOL/L (20-31); CHLORIDE LEVEL 97 MMOL/L (98-107); CREATININE FOR GFR 0.52 MG/DL (0.70-1.30); GLOMERULAR FILTRATION RATE > 60.0 (>56); GLUCOSE, FASTING 456 MG/DL (60-100); POTASSIUM SERUM 3.9 MMOL/L (3.5-5.1); SODIUM LEVEL 130 MMOL/L (136-145)
[2024-11-19] MEDS: HumuLIN R (REGULAR) INSULIN (NovoLIN R) **100U/ML** PER UNIT IV ONE (15:10)
[2024-11-19 17:33] VITALS: BP 137/77; TEMP 97; O2SAT 98
== END 2024-11-19 17:46 | disposition home or self-care (01) ==
LOC: M ED 13:16 → EDBD 13:16 → M ED 17:46
DX: E11.65 Type 2 diabetes mellitus with hyperglycemia (principal); Z91.148 Patient's other noncompliance with medication regimen for other reason; I10 Essential (primary) hypertension; E78.5 Hyperlipidemia, unspecified; F17.200 Nicotine dependence, unspecified, uncomplicated; Z91.018 Allergy to other foods; Z88.8 Allergy status to other drugs, medicaments and biological substances; Z79.82 Long term (current) use of aspirin; Z79.02 Long term (current) use of antithrombotics/antiplatelets; Z79.4 Long term (current) use of insulin; Z79.899 Other long term (current) drug therapy
CPT/HCPCS: 80048; 85027; 96374; 99284; J1815

== ENCOUNTER 2025-03-26 09:47 | Inpatient (IN) | payer MEDICARE, MEDICAID ==
[~2025-03-26] VITALS: Ht 165.1 cm; Wt 33.4 kg
[~2025-03-26 09:47] MED LIST changes: +AMMO12CR4 EX; -AMMO12CR7 EX; +TOPI-257 PO; -TOPI100T9 PO
[2025-03-26 10:44] LABS: PLATELET COUNT, AUTOMATED 316 10^3/uL (150-450)
[2025-03-26 11:04] LABS: METHADONE URINE NEGATIVE (NEGATIVE)
[2025-03-26 11:05] LABS: ETHYL ALCOHOL (ETHANOL) < 0.003 % (0.000-0.010)
[2025-03-26 11:05] LABS: AMPHETAMINES LEVEL URINE NEGATIVE (NEGATIVE); BARBITURATES URINE NEGATIVE (NEGATIVE); BENZODIAZEPINES URINE NEGATIVE (NEGATIVE); CANNABINOIDS URINE NEGATIVE (NEGATIVE); COCAINE METABOLITE URINE NEGATIVE (NEGATIVE); OPIATES URINE NEGATIVE (NEGATIVE); PHENCYCLIDINE URINE NEGATIVE (NEGATIVE)
[2025-03-26 11:07] LABS: SALICYLATE LEVEL < 3.0 MG/DL (<30)
[2025-03-26 11:14] LABS: ALT/SGPT 26 U/L (7.0-40); AST/SGOT 20 U/L (<34); CALCIUM LEVEL 9.0 MG/DL (8.5-10.1); CARBON DIOXIDE LEVEL 26 MMOL/L (20-31); CHLORIDE LEVEL 91 MMOL/L (98-107); CREATININE FOR GFR 0.64 MG/DL (0.70-1.30); GLOMERULAR FILTRATION RATE > 90.0 (>56); POTASSIUM SERUM 4.1 MMOL/L (3.5-5.1); SODIUM LEVEL 129 MMOL/L (136-145)
[2025-03-26] MEDS ORDERED: FAMO1TAB11 PO (11:37)
[2025-03-26] MEDS ORDERED: INSULIN DETEMIR SUBQ (11:37)
[2025-03-26] MEDS ORDERED: VENL150C43 PO (11:37)
[2025-03-26] MEDS: HumuLIN R (REGULAR) INSULIN (NovoLIN R) **100 U/ML** PER UNIT SC ONE (11:40)
[2025-03-26] MEDS ORDERED: HOME MED LIST COMPLETE! XX SCH (11:40)
[2025-03-26] MEDS ORDERED: IBUPROFEN 400 MG TAB PO PRN (13:50)
[2025-03-26] MEDS ORDERED: MAALOX 30 ML SUSP *UDC PO PRN (13:50)
[2025-03-26] MEDS ORDERED: MOM 30 ML SUSPENSION UDC PO PRN (13:50)
[2025-03-26] MEDS ORDERED: GLUCOSE 4 GM CHEW PO PRN (15:10)
[2025-03-26] MEDS ORDERED: DEXTROSE 50% 50 ML SYRINGE IV PRN (15:10)
[2025-03-26] MEDS ORDERED: GLUCAGON INJ 1 MG VIAL SC PRN (15:10)
[2025-03-26 16:48] VITALS: BP 122/59; TEMP 97.8; O2SAT 98
[2025-03-26] MEDS: INSULIN LISPRO (NovoLOG) PER UNIT SC SCH ×2 (17:07→20:32)
[2025-03-26] MEDS: NICOTINE 14 MG/24 HR TRANSDERMAL TD SCH (17:45)
[2025-03-26] MEDS: EZETIMIBE 10 MG TABLET PO SCH (20:29)
[2025-03-26] MEDS: VENLAFAXINE **XR** 75MG CAPSULE PO SCH (20:30)
[2025-03-26] MEDS: OLANZapine 10 MG TAB PO ONE (20:30)
[2025-03-26] MEDS: FAMOTIDINE 20 MG TAB PO SCH (20:30)
[2025-03-26] MEDS: TOPIRAMATE 25 MG TAB PO SCH (20:30)
[2025-03-26] MEDS: ASPIRIN 81 MG ENTERIC TABLET PO SCH (20:30)
[2025-03-26] MEDS: BENZTROPINE 2 MG TAB PO SCH (20:30)
[2025-03-26] MEDS: TOPIRAMATE 100 MG TAB PO SCH (20:30)
[2025-03-26] MEDS: ATORVASTATIN 20 MG TAB PO SCH (20:30)
[2025-03-26] MEDS: LanTUS (INSULIN GLARGINE INJ) 1 UNITS/0.01 ML SC SCH (20:31)
[2025-03-27] MEDS: FLUTICASONE PROPIONATE 0.05% NASAL SPRAY 16 GM SCH (08:06)
[2025-03-27] MEDS: NICOTINE POLACRILEX 2 MG GUM PO PRN (08:11)
[2025-03-27] MEDS ORDERED: ALBUTEROL SULFATE 2.5 MG/0.5 ML INH CONCENTRATE NEB SOLN NEB PRN (14:05)
[2025-03-27 15:18] VITALS: BP 116/72; TEMP 97.4; O2SAT 99
[2025-03-27 16:27] LABS: CALCIUM LEVEL 8.5 MG/DL (8.5-10.1); CARBON DIOXIDE LEVEL 23 MMOL/L (20-31); CHLORIDE LEVEL 102 MMOL/L (98-107); CREATININE FOR GFR 0.83 MG/DL (0.70-1.30); GLOMERULAR FILTRATION RATE > 90.0 (>56); POTASSIUM SERUM 4.3 MMOL/L (3.5-5.1); SODIUM LEVEL 136 MMOL/L (136-145)
[2025-03-27] MEDS: OLANZapine 10 MG TAB PO SCH (20:49)
[2025-03-27] MEDS: VENLAFAXINE **XR** 75MG CAPSULE PO SCH (20:49)
[2025-03-28] MEDS: ACETAMINOPHEN 325 MG TAB PO PRN (04:57)
[2025-03-28] MEDS: INSULIN LISPRO (NovoLOG) PER UNIT SC SCH (07:30)
[2025-03-28] MEDS: LanTUS (INSULIN GLARGINE INJ) 1 UNITS/0.01 ML SC SCH ×2 (08:03→20:36)
[2025-03-28] MEDS: traZODone 50 MG TAB PO PRN (20:33)
[2025-03-29 06:35] VITALS: BP 94/50; TEMP 97.3; O2SAT 98
[2025-03-29 06:41] LABS: VENOUS BASE EXCESS -1.9 (-2.0-2.0); VENOUS HCO3 25.2 MMOL/L (23.0-27.0); VENOUS O2 SATURATION 64.7 % (60.0-80.0); VENOUS PARTIAL PRESSURE CO2 51.4 mmHg (38.0-50.0); VENOUS PARTIAL PRESSURE O2 35.8 mmHg (30.0-50.0); VENOUS PH 7.308 UNITS (7.330-7.430); VENOUS STANDARD HCO3 22.1 MMOL/L; VENOUS TOTAL CO2 26.8 MMOL/L (24.0-28.0)
[2025-03-29 06:46] VITALS: BP 111/76
[2025-03-29 06:49] LABS: PLATELET COUNT, AUTOMATED 288 10^3/uL (150-450)
[2025-03-29 07:16] LABS: ACETONE/KETONE 0.08 MMOL/L (0.02-0.27)
[2025-03-29 07:17] LABS: CALCIUM LEVEL 9.0 MG/DL (8.5-10.1); CARBON DIOXIDE LEVEL 28 MMOL/L (20-31); CHLORIDE LEVEL 104 MMOL/L (98-107); CREATININE FOR GFR 0.80 MG/DL (0.70-1.30); GLOMERULAR FILTRATION RATE > 90.0 (>56); POTASSIUM SERUM 4.0 MMOL/L (3.5-5.1); SODIUM LEVEL 142 MMOL/L (136-145)
[2025-03-29 07:55] LABS: ESTIMATED AVERAGE GLUCOSE 312.0 MG/DL (60-110)
[2025-03-30 06:33] VITALS: BP 150/92; TEMP 97.6; O2SAT 97
[2025-03-31 06:38] VITALS: BP 154/78; TEMP 97.1; O2SAT 98
[2025-03-31 15:14] VITALS: BP 114/66; TEMP 97.4; O2SAT 99
[2025-04-01 06:31] VITALS: BP 104/60; TEMP 97.4; O2SAT 98
[2025-04-01] MEDS ORDERED: VENL75CA47 PO (09:35)
[2025-04-01] MEDS ORDERED: OLAN1TAB20 PO (09:35)
== END 2025-04-01 13:28 | disposition home or self-care (01) | DRG 885 ==
LOC: M ED 09:47 → M ED INP 13:47 → M PSY 14:57
PROVIDERS: ADMIT General Practice; ATTEND General Practice
DX: F20.9 Schizophrenia, unspecified (principal); R45.851 Suicidal ideations; E87.1 Hypo-osmolality and hyponatremia; Z91.148 Patient's other noncompliance with medication regimen for other reason; Z91.018 Allergy to other foods; Z88.8 Allergy status to other drugs, medicaments and biological substances; Z79.899 Other long term (current) drug therapy; Z79.82 Long term (current) use of aspirin; Z79.4 Long term (current) use of insulin; E78.5 Hyperlipidemia, unspecified; K21.9 Gastro-esophageal reflux disease without esophagitis; J45.909 Unspecified asthma, uncomplicated; G47.33 Obstructive sleep apnea (adult) (pediatric); R45.850 Homicidal ideations

== ENCOUNTER 2025-06-15 22:14 | Emergency (ER) | payer MEDICARE, MEDICAID ==
[~2025-06-15] VITALS: Ht 167.6 cm; Wt 91.8 kg
[~2025-06-15 22:14] MED LIST changes: +FAMO1TAB11 PO; -IBUP1TAB6 PO; +INSULIN DETEMIR SUBQ; +OLAN1TAB20 PO; +SFHIBU600 PO; +VENL150C43 PO; +VENL75CA47 PO
[2025-06-15 22:34] VITALS: BP 125/73; TEMP 97.2; O2SAT 100
== END 2025-06-16 00:26 | disposition left against medical advice (07) ==
LOC: M ED 22:14
DX: Z53.21 Procedure and treatment not carried out due to patient leaving prior to being seen by health care provider (principal)

== ENCOUNTER → 2025-06-16 | Outpatient (REF) | payer MEDICARE, MEDICAID ==
[~2025-06-16] MED LIST changes: +BACT800T5 PO
[2025-06-16 16:54] LABS: PLATELET COUNT, AUTOMATED 323 10^3/uL (150-450)
[2025-06-16 17:36] LABS: ALT/SGPT 21 U/L (7.0-40); AST/SGOT 11 U/L (<34); CALCIUM LEVEL 9.3 MG/DL (8.5-10.1); CARBON DIOXIDE LEVEL 25 MMOL/L (20-31); CHLORIDE LEVEL 93 MMOL/L (98-107); CHOLESTEROL LEVEL 103 MG/DL (<200); CHOLESTEROL RISK RATIO 2.36 (<5); CREATININE FOR GFR 0.69 MG/DL (0.70-1.30); GLOMERULAR FILTRATION RATE > 90.0 (>56); LDL CHOLESTEROL 40.8 MG/DL (<100); NON-HDL-C 59.4 MG/DL; POTASSIUM SERUM 4.8 MMOL/L (3.5-5.1); SODIUM LEVEL 130 MMOL/L (136-145); TRIGLYCERIDES LEVEL 93 MG/DL (<150)
== END ==
LOC: M LAB REF 16:19
PROVIDERS: ATTEND Family Medicine Addiction Medicine
DX: E11.9 Type 2 diabetes mellitus without complications (principal)

== ENCOUNTER 2025-06-19 14:29 | Emergency (ER) | payer MEDICARE, MEDICAID ==
[~2025-06-19] VITALS: Ht 167.6 cm; Wt 88.3 kg
[~2025-06-19 14:29] MED LIST changes: -BACT800T5 PO
[2025-06-19] MEDS: LIDOCAINE W/EPINEPHrine 1% 20 ML VIAL SC ONE (17:45)
[2025-06-19] MEDS: BACTRIM 160MG/800MG DS TAB PO ONE (17:45)
[2025-06-19 17:47] VITALS: BP 123/74; TEMP 97.3; O2SAT 100
[2025-06-19] MEDS ORDERED: BACT800T5 PO (17:48)
== END 2025-06-19 17:53 | disposition home or self-care (01) ==
LOC: EDBD 14:29 → M ED 14:29
DX: L02.31 Cutaneous abscess of buttock (principal); E11.65 Type 2 diabetes mellitus with hyperglycemia; J45.909 Unspecified asthma, uncomplicated; I10 Essential (primary) hypertension; G47.30 Sleep apnea, unspecified; F20.9 Schizophrenia, unspecified; F17.200 Nicotine dependence, unspecified, uncomplicated; Z88.8 Allergy status to other drugs, medicaments and biological substances; Z91.02 Food additives allergy status; Z79.82 Long term (current) use of aspirin; Z79.02 Long term (current) use of antithrombotics/antiplatelets; Z79.4 Long term (current) use of insulin; Z79.2 Long term (current) use of antibiotics; Z79.899 Other long term (current) drug therapy

== ENCOUNTER 2025-08-02 18:06 | Emergency (ER) | payer MEDICARE, MEDICAID ==
[~2025-08-02 18:06] MED LIST changes: +BACT800T5 PO; +POTA-232 PO; -POTA10TA67 PO
[2025-08-02 18:57] LABS: PLATELET COUNT, AUTOMATED 287 10^3/uL (150-450)
[2025-08-02 19:32] LABS: AMPHETAMINES LEVEL URINE NEGATIVE (NEGATIVE); BARBITURATES URINE NEGATIVE (NEGATIVE); BENZODIAZEPINES URINE NEGATIVE (NEGATIVE); COCAINE METABOLITE URINE NEGATIVE (NEGATIVE); METHADONE URINE NEGATIVE (NEGATIVE)
[2025-08-02 19:33] LABS: ETHYL ALCOHOL (ETHANOL) < 0.003 % (0.000-0.010)
[2025-08-02 19:33] LABS: CANNABINOIDS URINE NEGATIVE (NEGATIVE); OPIATES URINE NEGATIVE (NEGATIVE); PHENCYCLIDINE URINE NEGATIVE (NEGATIVE)
[2025-08-02 19:35] LABS: ALT/SGPT 25 U/L (7.0-40); AST/SGOT 17 U/L (<34); CALCIUM LEVEL 9.0 MG/DL (8.5-10.1); CARBON DIOXIDE LEVEL 25 MMOL/L (20-31); CHLORIDE LEVEL 99 MMOL/L (98-107); CREATININE FOR GFR 0.69 MG/DL (0.70-1.30); GLOMERULAR FILTRATION RATE > 90.0 (>56); POTASSIUM SERUM 4.0 MMOL/L (3.5-5.1); SALICYLATE LEVEL < 3.0 MG/DL (<30); SODIUM LEVEL 132 MMOL/L (136-145)
[2025-08-02 21:11] VITALS: BP 138/86; TEMP 97.8; O2SAT 96
== END 2025-08-02 21:10 | disposition home or self-care (01) ==
LOC: M ED 18:06
DX: S09.90XA Unspecified injury of head, initial encounter (principal); Y04.8XXA Assault by other bodily force, initial encounter; Z91.199 Patient's noncompliance with other medical treatment and regimen due to unspecified reason; E11.9 Type 2 diabetes mellitus without complications; J45.909 Unspecified asthma, uncomplicated; I10 Essential (primary) hypertension; F17.200 Nicotine dependence, unspecified, uncomplicated; Z88.8 Allergy status to other drugs, medicaments and biological substances; Y92.9 Unspecified place or not applicable; Y93.89 Activity, other specified; Y99.9 Unspecified external cause status

== ENCOUNTER 2025-08-14 03:11 | Inpatient (IN) | payer MEDICARE, MEDICAID ==
[2025-08-14 04:19] LABS: PLATELET COUNT, AUTOMATED 255 10^3/uL (150-450)
[2025-08-14 04:32] LABS: AMPHETAMINES LEVEL URINE NEGATIVE (NEGATIVE); BARBITURATES URINE NEGATIVE (NEGATIVE); BENZODIAZEPINES URINE NEGATIVE (NEGATIVE); COCAINE METABOLITE URINE NEGATIVE (NEGATIVE); METHADONE URINE NEGATIVE (NEGATIVE)
[2025-08-14 04:33] LABS: CANNABINOIDS URINE NEGATIVE (NEGATIVE); OPIATES URINE NEGATIVE (NEGATIVE); PHENCYCLIDINE URINE NEGATIVE (NEGATIVE)
[2025-08-14 04:35] LABS: ETHYL ALCOHOL (ETHANOL) 0.004 % (0.000-0.010)
[2025-08-14 04:36] LABS: ALT/SGPT 26 U/L (7.0-40); AST/SGOT 19 U/L (<34); CALCIUM LEVEL 8.4 MG/DL (8.5-10.1); CARBON DIOXIDE LEVEL 22 MMOL/L (20-31); CHLORIDE LEVEL 101 MMOL/L (98-107); CREATININE FOR GFR 0.56 MG/DL (0.70-1.30); GLOMERULAR FILTRATION RATE > 90.0 (>56); POTASSIUM SERUM 3.5 MMOL/L (3.5-5.1); SALICYLATE LEVEL < 3.0 MG/DL (<30); SODIUM LEVEL 133 MMOL/L (136-145)
[2025-08-14] MEDS ORDERED: MOM 30 ML SUSPENSION UDC PO PRN (07:30)
[2025-08-14] MEDS ORDERED: MAALOX 30 ML SUSP *UDC PO PRN (07:30)
[2025-08-14] MEDS ORDERED: TOPI-257 PO (18:31)
[2025-08-14] MEDS ORDERED: EZET10TA57 PO (18:31)
[2025-08-14] MEDS ORDERED: HALO10AM IM (18:31)
[2025-08-14] MEDS ORDERED: METF-877 PO (18:31)
[2025-08-14] MEDS ORDERED: ATOR40TA75 PO (18:31)
[2025-08-14] MEDS ORDERED: FAMO20TA PO (18:31)
[2025-08-14] MEDS ORDERED: VENL75CA47 PO (18:31)
[2025-08-14] MEDS ORDERED: HOME MED LIST COMPLETE! XX SCH (18:35)
[2025-08-14] MEDS: VENLAFAXINE **XR** 75MG CAPSULE PO SCH (21:12)
[2025-08-14] MEDS: BENZTROPINE 2 MG TAB PO SCH (21:12)
[2025-08-14] MEDS: TOPIRAMATE 100 MG TAB PO SCH (21:12)
[2025-08-15 06:19] VITALS: BP 126/68; TEMP 97.5; O2SAT 98
[2025-08-15] MEDS: RISPERIDONE 1 MG TAB PO SCH (08:42)
[2025-08-15] MEDS: FAMOTIDINE 20 MG TAB PO SCH (08:42)
[2025-08-15] MEDS: VENLAFAXINE **XR** 75MG CAPSULE PO SCH (08:42)
[2025-08-15] MEDS: ATORVASTATIN 20 MG TAB PO SCH (08:43)
[2025-08-15] MEDS: EZETIMIBE 10 MG TABLET PO SCH (08:43)
[2025-08-15] MEDS: FLUZONE VACCINE TRI PF(25-26) 0.5ML SYRINGE IM.IMMUN ONE (09:00)
[2025-08-15] MEDS ORDERED: GLUCAGON INJ 1 MG VIAL SC PRN (10:20)
[2025-08-15] MEDS ORDERED: GLUCOSE 4 GM CHEW PO PRN (10:20)
[2025-08-15] MEDS ORDERED: ONDANSETRON 4MG TAB PO PRN (10:20)
[2025-08-15] MEDS ORDERED: DEXTROSE 50% 50 ML SYRINGE IV PRN (10:20)
[2025-08-15] MEDS: INSULIN LISPRO (NovoLOG) PER UNIT SC SCH ×2 (11:12→21:00)
[2025-08-15 11:44] LABS: CALCIUM LEVEL 9.3 MG/DL (8.5-10.1); CARBON DIOXIDE LEVEL 26 MMOL/L (20-31); CHLORIDE LEVEL 99 MMOL/L (98-107); CREATININE FOR GFR 0.79 MG/DL (0.70-1.30); GLOMERULAR FILTRATION RATE > 90.0 (>56); POTASSIUM SERUM 4.1 MMOL/L (3.5-5.1); SODIUM LEVEL 133 MMOL/L (136-145)
[2025-08-15] MEDS: LanTUS (INSULIN GLARGINE INJ) 1 UNITS/0.01 ML SC SCH (12:34)
[2025-08-15] MEDS ORDERED: ECOT81TA5 PO (14:13)
[2025-08-15] MEDS: IBUPROFEN 400 MG TAB PO PRN (21:33)
[2025-08-15] MEDS: traZODone 50 MG TAB PO PRN (21:33)
[2025-08-16] MEDS: HALOPERIDOL 5 MG TAB PO SCH (21:00)
[2025-08-17] MEDS: LanTUS (INSULIN GLARGINE INJ) 1 UNITS/0.01 ML SC SCH (09:00)
[2025-08-17 10:20] VITALS: BP 150/95; TEMP 97.3; O2SAT 98
[2025-08-17 14:57] VITALS: BP 133/77; TEMP 97.4; O2SAT 98
[2025-08-18 06:27] VITALS: BP 172/89; TEMP 97.6; O2SAT 97
[2025-08-18] MEDS: HALOPERIDOL DECANOATE 100 MG/ML 1 ML VIAL IM SCH (09:23)
[2025-08-19 06:18] VITALS: BP 112/63; TEMP 97; O2SAT 95
[2025-08-19 16:03] VITALS: BP 143/83; TEMP 97.5; O2SAT 98
[2025-08-20 14:23] VITALS: BP 134/78; TEMP 97.5; O2SAT 99
[2025-08-21] MEDS: NICOTINE POLACRILEX 2 MG GUM PO PRN (10:45)
[2025-08-21 14:51] VITALS: BP 154/88; TEMP 97.3; O2SAT 97
[2025-08-22] MEDS: ACETAMINOPHEN 325 MG TAB PO PRN (09:44)
[2025-08-23 06:26] VITALS: BP 157/93; TEMP 97.5; O2SAT 97
[2025-08-23] MEDS ORDERED: VENL75CA47 PO (09:41)
[2025-08-23] MEDS ORDERED: HALO10AM IM (09:41)
[2025-08-23] MEDS ORDERED: METF10004 PO (09:41)
[2025-08-23] MEDS ORDERED: HALO5TAB33 PO (09:41)
[2025-08-23 16:20] VITALS: BP 155/96; TEMP 97.6; O2SAT 95
[2025-08-24 06:19] VITALS: BP 140/60; TEMP 97.1; O2SAT 97
[2025-08-24] MEDS: FLUZONE VACCINE TRI PF(25-26) 0.5ML SYRINGE IM.IMMUN ONE (09:22)
== END 2025-08-24 13:15 | disposition home or self-care (01) | DRG 885 ==
LOC: M ED 03:11 → M ED INP 07:30 → M PSY 09:59
PROVIDERS: ADMIT Student in an Organized Health Care Education/Training Program; ATTEND Student in an Organized Health Care Education/Training Program
DX: F20.89 Other schizophrenia (principal); R45.851 Suicidal ideations; Z91.148 Patient's other noncompliance with medication regimen for other reason; E11.9 Type 2 diabetes mellitus without complications; Z79.4 Long term (current) use of insulin; I10 Essential (primary) hypertension; E78.00 Pure hypercholesterolemia, unspecified; K21.9 Gastro-esophageal reflux disease without esophagitis; F32.A Depression, unspecified; Z79.899 Other long term (current) drug therapy; Z88.8 Allergy status to other drugs, medicaments and biological substances; J45.909 Unspecified asthma, uncomplicated; G47.33 Obstructive sleep apnea (adult) (pediatric); F17.210 Nicotine dependence, cigarettes, uncomplicated; F17.220 Nicotine dependence, chewing tobacco, uncomplicated